=== PATIENT | female | born 2000 | race Caucasian/White ===

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

== ENCOUNTER 2018-01-19 20:14 | Emergency (ER) | payer BC, MEDICAID ==
[2018-01-19] MEDS ORDERED: LORAZEPAM 2 MG/ML VIAL IV ONE (20:40)
[2018-01-19] MEDS ORDERED: 0.9 % SODIUM CHLORIDE 1,000 ML BAG IV ONE (20:40)
--- NOTE | 2018-01-19 20:40 | Emergency Department Record ---
Anxiety - General Chief Complaint: Anxiety Stated Complaint: SHAKING Time Seen by Provider: 01/19/18 20:37 Source: Patient Mode of Arrival: Ambulatory Limitations: No limitations - History of Present Illness Initial Comments: The patient is here due to suffering an anxiety attack about an hour ago. She was shaking all over and hyperventilating. She then felt like her arms and legs were very numb and tingling. There was no hx of trauma, fall, or injury. The patient presently is calming down and much more relaxed. She does have a hx of anxiety. MD Complaint: Anxiety Onset/Timin -: Minutes(s) Symptoms: Extremity numbness/tingling Place: Home Previous History of Same: No Severity: Mild Quality: Constant Provoking factors: Emotional stress, Medication change Improves With: Deep breaths Worsens With: Thinking about event Associated symptoms: Headaches (gone now.) - Related Data Home Medications: Home Medications Medication Instructions Recorded Confirmed Last Taken Citalopram Hydrobromide [Celexa] 20 mg PO DAILY 01/19/18 01/19/18 Unknown Quetiapine Fumarate [Seroquel] 50 mg PO DAILY 01/19/18 01/19/18 Unknown Allergies/Adverse Reactions: Allergies Allergy/AdvReac Type Severity Reaction Status Date / Time latex Allergy Intermediate RASH Verified 10/26/17 17:50 Travel Screening - Travel/Exposure Within Last 30 Days Have you traveled within the last 30 days?: No Review of Systems Constitutional: Denies: Chills, Fever Eyes: Denies: Eye discharge ENT: Denies: Congestion Respiratory: Denies: Cough, Dyspnea Past Medical History - SOCIAL HISTORY Smoking Status: Heavy tobacco smoker (>10/day) Alcohol Use: None Drug Use: None - RESPIRATORY Hx Respiratory Disorders: No - CARDIOVASCULAR Hx Cardio Disorders: No - NEURO Hx Neuro Disorders: No - GI Hx GI Disorders: No - Hx Genitourinary Disorders: No Comment:: PCOS - ENDOCRINE Hx Endocrine Disorders: No - MUSCULOSKELETAL Hx Musculoskeletal Disorders: No - PSYCH Hx Psych Problems: Yes Hx Depression: Yes - HEMATOLOGY/ONCOLOGY Hx Hematology/Oncology Disorders: No Family Medical History Any Significant Family History?: Yes Hx Heart Disease: Father *Heart Comment: CHF, SVT Hx Liver Disease: Father *Liver Comment: HIGH LIVER ENZYMES Physical Exam - General General Appearance: Alert, Oriented x3, Cooperative, No acute distress - Head Head exam: Atraumatic, Normocephalic, Normal inspection - Eye Eye exam: Normal appearance, PERRL, EOMI - ENT ENT exam: Normal exam, Mucous membranes moist, Normal external ear exam, Normal orophraynx Throat exam: Normal inspection. negative: Tonsillar erythema, Tonsillar exudate - Neck Neck exam: Normal inspection, Full ROM. negative: Tenderness - Respiratory Respiratory exam: Normal lung sounds bilaterally. negative: Respiratory distress - Cardiovascular Cardiovascular Exam: Regular rate, Normal rhythm, Normal heart sounds - GI/Abdominal GI/Abdominal exam: Soft, Normal bowel sounds. negative: Tenderness - Extremities Extremities exam: Normal inspection, Full ROM, Normal capillary refill. negative: Tenderness - Back Back exam: Reports: Normal inspection - Neurological Neurological exam: Alert, Normal gait, Oriented X3, Reflexes normal, Other (Neg Drift and Rhomberg exams.). negative: Abnormal gait, Altered, Motor sensory deficit Course Vital Signs 01/19/18 20:16 Temperature 98.1 F Pulse Rate 104 H Respiratory 18 Rate Blood Pressure 154/117 Pulse Ox 98 - Reevaluation(s) Reevaluation #1: The patient is doing a lot better at this time. She is now back to normal and is smiling and laughing with her family in the room. She is not sure what triggered the anxiety attack but clearly it has resolved. She is up walking with no difficulty and denies any numbness, tingling or weakness. I did discuss the need to see her PCP due to the attack and she does have an appointment on Wednesday of next week. 01/19/18 21:24 Medical Decision Making - Data Complexity MDM Data: Labs Ordered and/or Reviewed - Lab Data Result diagrams: 01/19/18 20:49 01/19/18 20:49 Disposition Disposition: Discharge Clinical Impression: Anxiety Disposition: Home, Self-Care Condition: (2) Stable Instructions: Anxiolysis in Adults (ED) Additional Instructions: Please continue your regular medicines and please see your family doctor next week for recheck. Please continue your regular medicines and also discuss with your family doctor your elevated liver enzymes. Return to the ER for any worsening symptoms. Forms: Patient Portal Access Time of Disposition: 21:27 Quality - Quality Measures Quality Measures: N/A - Blood Pressure Screening View Details: Yes Does Patient Have Any of the Following: No Blood Pressure Classification: Hypertensive Reading Systolic Measurement: 154 Diastolic Measurement: 117 Screening for High Blood Pressure: < First Hypertensive BP, F/U Documented > [ [id number]] First Hypertensive Follow-up Interventions: Referral to alternative/primary care provider.
[2018-01-19 20:55] LABS: BASO % 0.2 % (0-6); GRAN % 65.8 % (47-80); HEMATOCRIT 41.3 % (35.0-47.0); HEMOGLOBIN 14.4 gm/dl (11.6-16.0); LYMPH % 27.6 % (16-45); MEAN CELL VOLUME 84.5 fl (81-97); MEAN CORPUSCULAR HEMOGLOBIN 29.4 pg (27-33); MEAN CORPUSCULAR HGB CONC 34.9 g/dl (32-36); MEAN PLATELET VOLUME 12.8 fl (7.4-10.4); MONO % 5.4 % (0-9); PLATELET COUNT 167 K/uL (130-400); RED BLOOD COUNT 4.89 M/uL (3.80-5.40); RED CELL DISTRIBUTION WIDTH 13.7 % (11.5-14.5)
[2018-01-19 21:12] LABS: ALB/GLOB RATIO 1.6 (1.1-1.8); ALBUMIN 4.5 g/dL (4.0-5.0); ALKALINE PHOSPHATASE 139 U/L (35-104); ALT/SGPT 73 U/L (<33); AST/SGOT 42 U/L (10.0-35.0); BLOOD UREA NITROGEN 10 mg/dL (6-20); CREATININE 0.7 mg/dL (0.5-0.9); GLUCOSE,RANDOM 98 mg/dL (74-109); TOTAL PROTEIN 7.3 g/dL (6.6-8.7)
== END 2018-01-19 21:39 | disposition home or self-care (01) ==
LOC: ER 20:14
DX: F41.9 Anxiety disorder, unspecified (principal); R20.2 Paresthesia of skin; F17.210 Nicotine dependence, cigarettes, uncomplicated
CPT/HCPCS: 80053; 84703; 85025; 96374; 99284; J7030